=== PATIENT | female | born 1965 | race African-American/Black ===

== ENCOUNTER 2017-07-23 21:17 | Emergency (ER) | payer SELFPAY ==
[~2017-07-23] VITALS: Ht 157.5 cm; Wt 70.0 kg
[~2017-07-23 21:17] MED LIST: ADVIL200 M1 PO; ASPIR 8181 M1 PO; BENADRYL25 MG PO; ENDOCET 5-3251 EACH PO; FLEXERIL10 MG PO; GLUCOPHAGE XR750 MG PO; LOTENSIN40 MG PO; METFORMIN HCL500 MG PO; MYLICON,MYLANTA80 MG PO; NAPROSYN500 MG PO; NEURONTIN300 MG PO; NORVASC5 MG PO; PROAIR HFA8.5 GM IH; PROAIR RESPICL90 MCG IH; ZITHROMAX250 MG PO
[2017-07-23 21:25] VITALS: BP 133/74
[2017-07-23 21:52] LABS: HEMATOCRIT 43.4 % (36.0-46.0); HEMOGLOBIN 14.9 G/DL (11.9-15.5); MCH 31.6 PG (29.0-34.0); MCHC 34.3 G/DL (30.0-36.0); MCV 92.1 FL (83-99); PLATELET COUNT 291 K/uL (156-360); RBC DIS.WIDTH-CV 12.5 % (11.8-14.6); RBC DIS.WIDTH-SD 42.5 % (39-53); RED BLOOD COUNT 4.71 M/uL (3.80-5.20); WHITE BLOOD COUNT 9.1 K/uL (4.1-10.2)
[2017-07-23 22:03] LABS: CHLORIDE 103 mEq/L (99-109); POTASSIUM 4.1 mEq/L (3.7-5.4); SODIUM 139 mEq/L (136-147)
[2017-07-23 22:05] LABS: GLUCOSE 187 mg/dL (70-99)
[2017-07-23 22:09] LABS: CREATININE 0.9 mg/dL (0.6-1.3); GFR ESTIMATE (CALCULATED) > 59 mL/min/
[2017-07-23 22:10] LABS: UREA NITROGEN (BUN) 13 mg/dL (9-23)
== END 2017-07-24 02:35 | disposition left against medical advice (07) ==
LOC: EME 21:17
DX: R55 Syncope and collapse (principal); Z53.21 Procedure and treatment not carried out due to patient leaving prior to being seen by health care provider
CPT/HCPCS: 71020; 80048; 82948; 85027; 93005